=== PATIENT | female | born 1930 | race Two or more races ===

== ENCOUNTER 2016-10-05 15:03 | Inpatient (IN) | payer MEDICARE, MEDICAID ==
[~2016-10-05] VITALS: Ht 152.4 cm; Wt 49.9 kg
--- NOTE | 2016-10-05 15:03 | NUR ---
PT BB RA 39 FLU LIKE SYMPTOMS X1 DAY. SOB, N/V X4 TODAY. BS 250 FIELD. PT DIZZINESS SYNCOPE GLF NO INJURY NO PAIN. PLACED ON MONITOR. VSS. AWAITING MD ORDER
[2016-10-05] MEDS ORDERED: ASPI81TA2 PO (15:15)
[2016-10-05] MEDS ORDERED: METF500T4 PO (15:15)
[2016-10-05] MEDS ORDERED: SITA100T PO (15:15)
[2016-10-05] MEDS ORDERED: MECL-102 PO (15:15)
[2016-10-05] MEDS ORDERED: METO50TA3 PO (15:15)
--- NOTE | 2016-10-05 15:15 | NUR ---
RAC #20 IV ACCESS BLOOD SAMPLE COLLECTED SENT TO LAB.
[2016-10-05] MEDS ORDERED: IPRATROPIUM NEB FS 0.5 MG/2.5 ML AMPUL.NEB NEB ONE (15:30)
[2016-10-05] MEDS ORDERED: ALBUTEROL FS 2.5 MG/0.5 ML VIAL.NEB NEB ONE (15:30)
--- NOTE | 2016-10-05 15:30 | NUR ---
CALLED RT FOR BREATHING TREATMENT
[2016-10-05] MEDS ORDERED: IPRATROPIUM NEB FS 0.5 MG/2.5 ML AMPUL.NEB ONE (15:36)
[2016-10-05] MEDS ORDERED: ALBUTEROL FS 2.5 MG/3 ML VIAL.NEB ONE (15:36)
--- NOTE | 2016-10-05 15:41 | NUR ---
EKG AT BEDSIDE IN PROGRESS
--- NOTE | 2016-10-05 15:43 | NUR ---
GROUT MACHINE OPERATOR AT BEDSIDE
[2016-10-05 15:48] LABS: BASOPHILS # (AUTO) 0.1 /CMM (0.0-0.2); EOSINOPHILS # (AUTO) 0.1 /CMM (0.0-0.7); HEMATOCRIT 37 % (33-45); HEMOGLOBIN 12.5 g/dL (11.5-14.8); LYMPHOCYTES # (AUTO) 0.7 /CMM (0.8-4.8); LYMPHOCYTES % (AUTO) 5.5 % (20.0-44.0); MEAN CORPUSCULAR HEMOGLOBIN 34 PG (26.0-33.0); MEAN CORPUSCULAR HGB CONC 34 g/dl (31.0-36.0); MEAN CORPUSCULAR VOLUME 101 fL (82-100); MONOCYTES # (AUTO) 0.4 /CMM (0.1-1.30); MONOCYTES % (AUTO) 3.3 % (2.0-12.0); NEUTROPHILS # (AUTO) 11.4 /CMM (1.8-8.9); NEUTROPHILS % (AUTO) 89.2 % (43.0-81.0); PLATELET COUNT (AUTO) 285 /CMM (150-450); RDW COEFFICIENT OF VARIATION 11.9 (11.5-15.0); RED BLOOD CELL COUNT(AUTO) 3.69 MIL/uL (4.0-5.2); WHITE BLOOD COUNT (AUTO) 12.7 K/uL (4.3-11.0)
[2016-10-05 15:55] LABS: CALCIUM, SERUM 8.4 mg/dL (8.5-10.1); CARBON DIOXIDE 27 mmol/L (21-32); CHLORIDE 105 mmol/L (98-107); CREATININE 0.9 mg/dL (0.6-1.3); GLUCOSE 189 mg/dL (74-106); POTASSIUM 4.5 mmol/L (3.5-5.1); SODIUM SERUM 140 mmol/L (136-145); UREA NITROGEN, BLOOD 15 mg/dL (7-18)
[2016-10-05 16:00] LABS: ALANINE AMINOTRANSFERASE 12 U/L (12-78); ALBUMIN 2.7 g/dL (3.4-5.0); ALKALINE PHOSPHATASE 131 U/L (46-116); ASPARTATE AMINOTRANSFERASE 22 U/L (15-37); BILIRUBIN,DIRECT 0.2 mg/dL (0.0-0.2); BILIRUBIN,TOTAL 0.7 mg/dL (0.2-1.0); INR 0.96 (0.87-1.13); TOTAL PROTEIN, SERUM 6.8 g/dL (6.4-8.2)
[2016-10-05 16:07] LABS: TROPONIN I < 0.017 ng/mL (0.00-0.056)
[2016-10-05 16:22] LABS: LACTIC ACID 2.3 mmol/L (0.4-2.0)
--- NOTE | 2016-10-05 16:37 | NUR ---
URINE SAMPLE COLLECTED SENT OT LAB
[2016-10-05 16:40] LABS: APPEARANCE,URINE Clear (CLEAR); BILIRUBIN,URINE Negative (NEGATIVE); BLOOD, URINE Negative Ery/uL (NEGATIVE); COLOR,URINE Yellow (YELLOW); KETONES,URINE Negative (NEGATIVE); LEUKOCYTE ESTERASE ,URINE Negative (NEGATIVE); NITRITE, URINE Negative (NEGATIVE); PROTEIN,URINE Trace mg/dl (NEGATIVE); UGLUCOSE Negative (NEGATIVE); UROBILINOGEN,URINE 0.2 EU/dL (0.2)
[2016-10-05 16:58] LABS: ADD URINE CULTURE NO; BACTERIA,URINE None seen /HPF (None Seen); RBC,URINE NONE SEEN /HPF (0-2); SQUAMOUS EPITHELIAL CELL,UR Few /HPF (None Seen); WBC,URINE NONE SEEN /HPF (0-3)
--- NOTE | 2016-10-05 17:08 | NUR ---
ANTONIO PAGED, GERARDO DUNCAN SPRAY GUN OPERATOR
--- NOTE | 2016-10-05 17:08 | NUR ---
CALLED NURSING SUP. FOR MS BED
--- NOTE | 2016-10-05 17:26 | NUR ---
[facility] REPAGED
[2016-10-05] MEDS ORDERED: IV NS 0.9% 1,000 ML BAG IV ONE (17:30)
[2016-10-05] MEDS ORDERED: PIPERACILLIN /TAZOBACTAM 3.375 G in IV D5W 50 ML IV ONE (17:30)
[2016-10-05] MEDS ORDERED: IV NS 0.9% 1,000 ML ONE (17:32)
[2016-10-05] MEDS ORDERED: IV NS 0.9% 500 ML IV ONE (17:32)
[2016-10-05] MEDS ORDERED: PIPERACILLIN /TAZOBACTAM 3.375 G VIAL IV ONE (17:33)
[2016-10-05] MEDS ORDERED: IV SET PRIMARY PUMP SET 1 EA INFUS.SET MC ONE (17:33)
--- NOTE | 2016-10-05 17:37 | NUR ---
EPIC REPAGED AGAIN
--- NOTE | 2016-10-05 17:50 | NUR ---
EPIC REPAGED AGAIN
--- NOTE | 2016-10-05 17:54 | NUR ---
GAVE REPORT TO CHEYENNE CROWLEY MEDSUR 304 GERARDO DUNCAN DX NAUSEA AND VOMITING .
--- NOTE | 2016-10-05 18:27 | NUR ---
IV TRANSFUSING DURING TRASNFER
--- NOTE | 2016-10-05 19:10 | NUR ---
MS/RN INITIAL NOTES REPORT RECEIVED FROM ER , REPORT FROM MARTHA, 86 Y/O CHINESE FEMALE PATIENT FROM ER, TO ROOM 304 #2, MED/SURG PATIENT, UNDER CARE OF DR. VEENA DUNCAN. ORIENTED TO THE ROOM, CALL LIGHT SYSTEM, VISITING HOURS, VITAL SIGNS TAKEN WITHIN NORMAL RANGE, OS SATURATION 90 %, 2L/M N/C APPLIED, TOLERATED WELL, INCREASED 100%. NO SOB, NO DISTRESS NOTED,ALERT, ORIENTED x 4, DENIES PAIN, KEPT CLEAN, DRY, COMFORTABLE, PATIENT'S AND FAMILY NEEDS MET IN TIMELY MANNER, WITH CALL LIGHT WITHIN EASY REACH. ADMISSION REPORT GIVEN TO THE [facility]LLHOP NURSE FOR MARTITA
--- NOTE | 2016-10-05 19:50 | NUR ---
MS RN NOTE: PATIENT RESTING IN BED, NO ACUTE DISTRESS NOTED FAMILY AT BEDSIDE. BREATHING EVEN AND UNLABORED, NO SOB NOTED. IV TO RAC IN PLACE. WAITING FOR ADMIT ORDERS. BED LOCKED AND IN LOWEST POSITION, CALL LIGHT IN REACH. WILL CONTINUE TO MONITOR.
[2016-10-05 20:34] VITALS: BP 132/72
[2016-10-05] MEDS ORDERED: Z GUARD REMEDY 2 OZ OINT TP PRN (22:30)
[2016-10-05] MEDS ORDERED: ONDANSETRON HCL/PF 4 MG/2 ML VIAL IVP PRN (22:30)
[2016-10-05] MEDS ORDERED: ENOXAPARIN SODIUM 30 MG/0.3 ML DISP.SYRIN SQ SCH (22:30)
[2016-10-05] MEDS ORDERED: MAG HYDROX/AL HYDROX/SIMETH 30 ML UDC PO PRN (22:30)
[2016-10-05] MEDS ORDERED: MAGNESIUM HYDROXIDE 30 ML UDC PO PRN (22:30)
[2016-10-05] MEDS ORDERED: ACETAMINOPHEN 325 MG TABLET PO PRN (22:30)
[2016-10-05] MEDS ORDERED: INSULIN REGULAR, HUMAN 100 UNIT/ML 3 ML VIAL SQ PRN (23:00)
[2016-10-05] MEDS ORDERED: DEXTROSE 50%-WATER 50 ML DISP.SYRIN IV PRN (23:00)
[2016-10-05] MEDS ORDERED: ENOXAPARIN SODIUM 30 MG/0.3 ML DISP.SYRIN ONE (23:13)
[2016-10-05] MEDS: IV NS 0.9% 1,000 ML IV PRN (23:20)
--- NOTE | 2016-10-06 02:00 | NUR ---
MS RN NOTE: PATIENT SLEEPING IN BED, NO ACUTE DISTRESS NOTED. BREATHING EVEN AND UNLABORED, NO SOB NOTED. IV TO RAC IN PLACE, INFUSING NS AT 75ML/HR. BED LOCKED AND IN LOWEST POSITION, CALL LIGHT IN REACH. WILL CONTINUE TO MONITOR.
--- NOTE | 2016-10-06 06:00 | NUR ---
MS RN NOTE: PATIENT RESTING IN BED, NO ACUTE DISTRESS NOTED. BREATHING EVEN AND UNLABORED, NO SOB NOTED. IV TO RAC IN PLACE, INFUSING NS AT 75ML/HR. BED LOCKED AND IN LOWEST POSITION, CALL LIGHT IN REACH. WILL ENDORSE TO DAY NURSE TO CONTINUE WITH PLAN OF CARE.
[2016-10-06] MEDS: BLOOD SUGAR DIAGNOSTIC 1 EACH STRIP IN SCH ×4 (06:45→21:36)
--- NOTE | 2016-10-06 06:45 | NUR ---
MS RN NOTE: PATIENT BLOOD SUGAR LEVEL 123 MG/DL, NO INSULIN NEEDED PER SLIDING SCALE. NO S/S OF HYPER/HYPOGLYCEMIA NOTED. WILL CONTINUE TO MONITOR.
[2016-10-06 06:50] LABS: BASOPHILS % (AUTO) 0.4 % (0.0-2.0); EOSINOPHILS # (AUTO) 0.5 /CMM (0.0-0.7); EOSINOPHILS % (AUTO) 7.9 % (0.0-6.0); HEMATOCRIT 33 % (33-45); HEMOGLOBIN 10.9 g/dL (11.5-14.8); LYMPHOCYTES # (AUTO) 0.9 /CMM (0.8-4.8); LYMPHOCYTES % (AUTO) 12.7 % (20.0-44.0); MEAN CORPUSCULAR HEMOGLOBIN 33 PG (26.0-33.0); MEAN CORPUSCULAR HGB CONC 33 g/dl (31.0-36.0); MEAN CORPUSCULAR VOLUME 100 fL (82-100); MONOCYTES # (AUTO) 0.6 /CMM (0.1-1.30); NEUTROPHILS # (AUTO) 4.9 /CMM (1.8-8.9); PLATELET COUNT (AUTO) 240 /CMM (150-450); RDW COEFFICIENT OF VARIATION 12.9 (11.5-15.0); RED BLOOD CELL COUNT(AUTO) 3.29 MIL/uL (4.0-5.2); WHITE BLOOD COUNT (AUTO) 6.9 K/uL (4.3-11.0)
[2016-10-06 07:38] LABS: ALBUMIN 2.2 g/dL (3.4-5.0); BILIRUBIN,TOTAL 0.7 mg/dL (0.2-1.0); CALCIUM, SERUM 7.8 mg/dL (8.5-10.1); CREATININE 0.9 mg/dL (0.6-1.3); MAGNESIUM 1.6 mg/dL (1.8-2.4); PHOSPHORUS 3.6 mg/dL (2.5-4.9); TOTAL PROTEIN, SERUM 5.9 g/dL (6.4-8.2)
[2016-10-06 08:00] VITALS: BP 101/56
--- NOTE | 2016-10-06 08:00 | NUR ---
MS RN NOTES RECEIVED PT IN BED RESTING COMFORTABLY. PT IS A/OX4. NO SOB OR ANY S/S OF DISTRESS NOTED. PT DENIES ANY DISCOMFORT OR PAIN. PT ON 2L NASAL CANNULA. IV IS INTACT AND PATENT, NS RUNNING AT 75ML/HR. BED IS IN LOW LOCKED POSITION. CALL LIGHT IS WITHIN REACH. WILL CONTINUE TO MONITOR THROUGHOUT SHIFT.
[2016-10-06] MEDS: PANTOPRAZOLE 40 MG TABLET.DR PO SCH (08:31)
[2016-10-06] MEDS ORDERED: SECONDARY IV SET 1 EA INFUS.SET MC ONE ×2 (11:17→12:30)
[2016-10-06] MEDS: Magnesium 1GM/D5W 100ML PREMIX 100 ML IV SCH ×2 (11:24→13:16)
[2016-10-06] MEDS ORDERED: IPRATROPIUM NEB FS 0.5 MG/2.5 ML AMPUL.NEB NEB PRN (12:00)
[2016-10-06] MEDS ORDERED: PIPERACILLIN /TAZOBACTAM 3.375 G in IV D5W 50 ML IV SCH (12:00)
[2016-10-06] MEDS ORDERED: ALBUTEROL FS 2.5 MG/0.5 ML VIAL.NEB NEB PRN (12:00)
[2016-10-06] MEDS: PIPERACILLIN /TAZOBACTAM 2.25 G in IV D5W 50 ML IV SCH ×2 (12:41→17:58)
[2016-10-06 13:11] LABS: THYROID STIMULATING HORMONE 0.846 uIU/mL (0.358-3.74)
[2016-10-06 16:00] VITALS: BP 112/58
--- NOTE | 2016-10-06 18:59 | NUR ---
MS RN NOTES PATIENT IS IN BED RESTING COMFORTABLY. PATIENT IS A/OX3. IV IS INTACT AND PATENT. PATIENT IS CURRENTLY ON ROOM AIR, SATURATION AT 95%. ALL PATIENT NEEDS HAVE BEEN MET. PATIENT DENIES ANY DISCOMFORT OR PAIN AT THIS TIME. BED IS IN LOW LOCKED POSITION.CALL LIGHT IS WITHIN REACH. FAMILY MEMBERS AT BEDSIDE. WILL ENDORSE CARE TO PM SHIFT.
[2016-10-06 19:00] VITALS: BP 126/59
--- NOTE | 2016-10-06 19:45 | NUR ---
MS DEVIKA INITIAL NOTES RECEIVED PT IN BED AWAKE AND ALERT WITH IVF OF NS AT 75ML/HR ON RIGHT AC GAUGE 20 , PATENT AND INTACT. DENIES ANY PAIN OR ANY DISCOMFORT. AWARE WHERE SHE AT. NO SIGNS OF ANY ACUTE DISTRESS NOTED. KEPT HER WARM AND COMFORTABLE AT ALL TIMES. BED ALARM SET FOR PT SAFETY. WILL CONTINUE TO MONITOR. PLACE CALL LIGHT AT REACH.
[2016-10-06 21:00] VITALS: BP 126/59
[2016-10-06] MEDS: ENOXAPARIN SODIUM 30 MG/0.3 ML DISP.SYRIN SQ SCH (21:43)
--- NOTE | 2016-10-07 | NUR ---
ASSEMBLER [employer]ODUCTS/NOTES PT SLEEPING COMFORTABLY IN BED WITH NO SIGNS OF ANY ACUTE DISTRESS NOTED. ZOSYN IVP BAG WILL HUNG BY ANOTHER NURSE. KEPT HER WARM AND COMFORTABLE AT ALL TIMES. WILL CONTINUE TO MONITOR. BED ALARM SET FOR SAFETY.
[2016-10-07] MEDS: PIPERACILLIN /TAZOBACTAM 2.25 G in IV D5W 50 ML IV SCH ×4 (00:20→18:20)
[2016-10-07] MEDS: IV NS 0.9% 1,000 ML IV PRN (05:45)
[2016-10-07] MEDS: BLOOD SUGAR DIAGNOSTIC 1 EACH STRIP IN SCH ×4 (05:59→21:45)
[2016-10-07 06:35] LABS: BASOPHILS % (AUTO) 0.4 % (0.0-2.0); EOSINOPHILS # (AUTO) 0.5 /CMM (0.0-0.7); EOSINOPHILS % (AUTO) 10.4 % (0.0-6.0); HEMATOCRIT 31 % (33-45); HEMOGLOBIN 10.2 g/dL (11.5-14.8); LYMPHOCYTES # (AUTO) 1.1 /CMM (0.8-4.8); LYMPHOCYTES % (AUTO) 23.6 % (20.0-44.0); MEAN CORPUSCULAR HEMOGLOBIN 33 PG (26.0-33.0); MEAN CORPUSCULAR HGB CONC 33 g/dl (31.0-36.0); MEAN CORPUSCULAR VOLUME 101 fL (82-100); MONOCYTES # (AUTO) 0.6 /CMM (0.1-1.30); MONOCYTES % (AUTO) 13.3 % (2.0-12.0); NEUTROPHILS # (AUTO) 2.4 /CMM (1.8-8.9); NEUTROPHILS % (AUTO) 52.3 % (43.0-81.0); PLATELET COUNT (AUTO) 232 /CMM (150-450); RDW COEFFICIENT OF VARIATION 12.9 (11.5-15.0); RED BLOOD CELL COUNT(AUTO) 3.05 MIL/uL (4.0-5.2); WHITE BLOOD COUNT (AUTO) 4.6 K/uL (4.3-11.0)
--- NOTE | 2016-10-07 06:54 | NUR ---
MS GEAR LAPPER CLOSING NOTES PT AWAKE AND ALERT , MORNING CARE DONE DENIES ANY PAIN OR ANY DISCOMFORT. BLOOD SUGAR 138, NO INSULIN GIVEN PER PT REQUESTED. NO SIGNS OG HYPO/HYPER GLYCEMIA NOTED. STABLE SHEYLA THE NIGHT AND SLEPT WELL. ALL DUE MEDS GIVEN AND ALL NEEDS MET. KEPT HER WARM AND COMFORTABLE AT ALL TIMES. WILL ENDORSE TO AM NURSE FOR CONTINUITY OF CARE. BED ALARM SET FOR SAFETY. PLACE CALL LIGHT AT REACH.
[2016-10-07 07:07] LABS: CALCIUM, SERUM 7.8 mg/dL (8.5-10.1); CREATININE 0.8 mg/dL (0.6-1.3); MAGNESIUM 2.1 mg/dL (1.8-2.4); PHOSPHORUS 2.8 mg/dL (2.5-4.9); POTASSIUM 4.3 mmol/L (3.5-5.1)
[2016-10-07 08:00] VITALS: BP 124/64
[2016-10-07] MEDS: PANTOPRAZOLE 40 MG TABLET.DR PO SCH (08:00)
--- NOTE | 2016-10-07 08:00 | NUR ---
MS RN OPENING NOTES RECEIVED PATIENT RESTING COMFORTABLY IN BED. PATIENT IS A/OX3. IV ON RIGHT AC IS INTACT AND PATENT. NO SOB OR ANY S/S OF DISTRESS NOTED. PATIENT DENIES PAIN AT THIS TIME. PATIENT O2 SATURATION AT 96% ON ROOM AIR. BED IS IN LOW LOCKED POSITION. CALL LIGHT IS WITHIN REACH. WILL CONTINUE TO MONITOR THROUGHOUT SHIFT.
--- NOTE | 2016-10-07 09:45 | NUR ---
MS RN NOTES PATIENT NOTED THAT IV ON RIGHT AC WAS DISLODGED. NEW IV WAS STARTED ON HER RIGHT FOREARM GAUGE 22, X1 ATTEMPT. IV IS PATENT AND INTACT. PATIENT DENIES ANY PAIN AND DISCOMFORT. WILL CONTINUE TO MONITOR.
[2016-10-07] MEDS: LINAGLIPTIN 5 MG TABLET PO SCH (10:55)
[2016-10-07] MEDS: MECLIZINE HCL 25 MG TABLET PO SCH ×2 (12:23→16:49)
[2016-10-07 16:00] VITALS: BP 124/78
[2016-10-07] MEDS: METFORMIN 500 MG TABLET PO SCH (16:49)
[2016-10-07] MEDS: METOPROLOL TARTRATE 50 MG TABLET PO SCH (16:49)
--- NOTE | 2016-10-07 18:56 | NUR ---
MS RN CLOSING NOTES PATIENT IS A/OX3. PATIENT IS IN BED. BED IS IN SEMI-LOVE'S. NO S/S OF DISTRESS OR SOB NOTED. PATIENT O2 SATURATION AT 96% ON ROOM AIR. IV IS PATENT AND INTACT. ALL PATIENT NEEDS MET. PATIENT'S DAUGHTER AT THE BEDSIDE. BED IS IN LOW LOCKED POSITION. CALL LIGHT IS WITHIN REACH. WILL ENDORSE CARE TO PM SHIFT.
--- NOTE | 2016-10-07 19:32 | NUR ---
MS DEVIKA INITIAL NOTES RECEIVED REPORT FROM AM NURSE ADELAIDE, SEEN PT SITTING ON HER BED WITH FAMILY AT THE BEDSIDE. DENIES ANY PAIN OR ANY DISCOMFORT. NO SOB NOTED. IVF STILL INFUSING ON HER RIGHT FOREARM PATENT AND INTACT. ENCOURAGE PT TO USED THE CALL LIGHT IF SHE NEEDS SOME HELP OR NEEDS ASSISTANCE. BED ALARM ALSO SET FOR PT SAFETY. WILL CONTINUE TO MONITOR. PLACE CALL LIGHT AT REACH.
[2016-10-07 20:00] VITALS: BP 131/69
[2016-10-07] MEDS: ENOXAPARIN SODIUM 30 MG/0.3 ML DISP.SYRIN SQ SCH (21:48)
--- NOTE | 2016-10-08 | NUR ---
HISTOPATHOLOGIST /NOTES PT SLEEPING COMFORTABLY IN BED WITHOUT ANY ACUTE DISTRESS NOTED. IVF NS AT 75ML/HR STILL INFUSING. WILL CONTINUE TO MONITOR.
[2016-10-08] MEDS: PIPERACILLIN /TAZOBACTAM 2.25 G in IV D5W 50 ML IV SCH ×2 (00:58→05:35)
[2016-10-08] MEDS: BLOOD SUGAR DIAGNOSTIC 1 EACH STRIP IN SCH (06:28)
[2016-10-08 07:32] LABS: BASOPHILS % (AUTO) 0.4 % (0.0-2.0); EOSINOPHILS # (AUTO) 0.4 /CMM (0.0-0.7); EOSINOPHILS % (AUTO) 11.3 % (0.0-6.0); HEMATOCRIT 31 % (33-45); HEMOGLOBIN 10.5 g/dL (11.5-14.8); LYMPHOCYTES # (AUTO) 0.9 /CMM (0.8-4.8); LYMPHOCYTES % (AUTO) 23.8 % (20.0-44.0); MEAN CORPUSCULAR HEMOGLOBIN 34 PG (26.0-33.0); MEAN CORPUSCULAR HGB CONC 34 g/dl (31.0-36.0); MEAN CORPUSCULAR VOLUME 100 fL (82-100); MONOCYTES # (AUTO) 0.4 /CMM (0.1-1.30); MONOCYTES % (AUTO) 11.2 % (2.0-12.0); NEUTROPHILS # (AUTO) 2.1 /CMM (1.8-8.9); NEUTROPHILS % (AUTO) 53.3 % (43.0-81.0); PLATELET COUNT (AUTO) 237 /CMM (150-450); RDW COEFFICIENT OF VARIATION 12.5 (11.5-15.0); RED BLOOD CELL COUNT(AUTO) 3.11 MIL/uL (4.0-5.2)
--- NOTE | 2016-10-08 07:35 | NUR ---
GALLEY COOK/ CLOSING NOTES PT BACK TO SLEEP AFTER MORNING CARE DONE. STABLE SHEYLA THE NIGHT , NO SOB NOTED. ALL DUE MEDS GIVEN AND ALL NEEDS MET. BLOOD SUGAR 102 NO INSULIN GIVEN. KEPT HER WARM AND COMFORTABLE AT ALL TIMES. SAFETY PRECAUTION IMPLEMENTED AND OBSERVED. ENDORSE TO INCOMING NURSE FOR CONTINUITY OF CARE.
--- NOTE | 2016-10-08 07:40 | NUR ---
MS RN RECEIVED ON BED,AWAKE,ALERT,ORIENTED X3,NOT IN ANY FORM OF DISTRESS, RESPIRATIONS EVEN AND UNLABORED,NO SOB NOTED, LUNGS ARE CLEAR, ABDOMEN OF,POSITIVE BOWEL SOUNDS, DENEIS PAIN AT THIS TIME, WILL MONITOR PATIENT'S CONDITION.
[2016-10-08 08:00] VITALS: BP 123/64
[2016-10-08 08:08] LABS: CREATININE 0.9 mg/dL (0.6-1.3); MAGNESIUM 1.7 mg/dL (1.8-2.4); PHOSPHORUS 2.9 mg/dL (2.5-4.9); POTASSIUM 3.8 mmol/L (3.5-5.1)
[2016-10-08] MEDS ORDERED: AMOX1TAB49 PO (08:25)
[2016-10-08] MEDS ORDERED: ALBUTEROL FS 2.5 MG/0.5 ML VIAL.NEB NEB ONE (08:30)
[2016-10-08] MEDS ORDERED: IPRATROPIUM NEB FS 0.5 MG/2.5 ML AMPUL.NEB NEB ONE (08:30)
--- NOTE | 2016-10-08 08:49 | NUR ---
MS CARLINE BREAKFAST SERVED,DUE MEDS GIVEN,TOLERATING WELL.WILL BE DISCHARGE TODAY PER YARELIS'S ORDER.
[2016-10-08] MEDS ORDERED: SITAGLIPTIN PHOSPHATE 50 MG TABLET PO SCH (09:00)
[2016-10-08] MEDS ORDERED: ASPIRIN 81 MG TAB.CHEW PO SCH (09:00)
[2016-10-08] MEDS: MECLIZINE HCL 25 MG TABLET PO SCH (09:28)
[2016-10-08] MEDS: METFORMIN 500 MG TABLET PO SCH (09:28)
[2016-10-08] MEDS: PANTOPRAZOLE 40 MG TABLET.DR PO SCH (09:28)
[2016-10-08] MEDS: LINAGLIPTIN 5 MG TABLET PO SCH (09:28)
[2016-10-08 09:29] VITALS: BP 123/64
[2016-10-08] MEDS: METOPROLOL TARTRATE 50 MG TABLET PO SCH (09:29)
[2016-10-08] MEDS ORDERED: MAGNESIUM OXIDE 400 MG TABLET PO ONE (11:00)
--- NOTE | 2016-10-08 11:00 | NUR ---
MS RN DAUGHTER CARE TO SHUTTLE REPAIRER MOM, DISCHARGE INSTRUCTIONS GIVEN, PRESCRIPTIONS GIVEN TO PATIENT, ALL NEEDS ATTENDED.
--- NOTE | 2016-10-08 11:20 | NUR ---
MS RN PATIENT WENT HOME ACCOMPANIED BY DAUGHTER, NO DISTRESS NOTED, AL NEEDS ATTENDED
== END 2016-10-08 11:30 | disposition home or self-care (01) | DRG 872 ==
LOC: ER 15:05 → MED 17:51
PROVIDERS: ADMIT Nurse Practitioner Acute Care; ATTEND Nurse Practitioner Acute Care
DX: A41.9 Sepsis, unspecified organism (principal); E87.2 Acidosis; A09 Infectious gastroenteritis and colitis, unspecified; E11.9 Type 2 diabetes mellitus without complications; I10 Essential (primary) hypertension; E86.0 Dehydration; D75.89 Other specified diseases of blood and blood-forming organs; D64.9 Anemia, unspecified; J20.9 Acute bronchitis, unspecified
CPT/HCPCS: 36415; 71010-TC; 80048-TC; 80053-TC; 80061-TC; 80076-TC; 81000-TC; 82962-TC; 83605-TC; 83735-TC; 84100-TC; 84443-TC; 84484-TC; 85025-TC; 85730-TC; 87040-TC; 87081-TC; 87086-TC; 93307-TC; 94799-TC; 97001-TC; A4606; J1650; J1815; J2543; J3475; J7030; J7040; J7060; J8597; Z7610